=== PATIENT | female | born 1990 | race Caucasian/White ===

== ENCOUNTER 2022-02-06 01:14 | Emergency (ER) | payer OTHER ==
[~2022-02-06] VITALS: Ht 167.6 cm; Wt 77.1 kg
== END 2022-02-06 05:22 | disposition left against medical advice (07) ==
LOC: ER 01:14
DX: S61.412A Laceration without foreign body of left hand, initial encounter (principal); W26.0XXA Contact with knife, initial encounter; Z88.2 Allergy status to sulfonamides
CPT/HCPCS: 73130; 90714; J1885